=== PATIENT | male | born 1965 | race African-American/Black ===

== ENCOUNTER 2025-03-31 05:22 | Emergency (ER) | payer BC ==
[~2025-03-31] VITALS: Ht 170.2 cm; Wt 118.0 kg
[2025-03-31 05:26] VITALS: TEMP 37
[2025-03-31] MEDS ORDERED: METHYLPREDNISOLONE SOD SUCC 125MG/2ML (ACT-O-VIAL) IV STA (05:31)
[2025-03-31 05:40] VITALS: PULSE 112; RESP 24; O2SAT 95
[2025-03-31] MEDS: IPRATROPIUM BROMIDE (0.02%) 0.5MG/2.5ML NEB HHN STA (05:40)
[2025-03-31] MEDS: ALBUTEROL (0.083%) 2.5MG/3ML NEB HHN SCH (05:41)
[2025-03-31] MEDS ORDERED: P50 MT (06:45)
[2025-03-31] MEDS ORDERED: ALBU4TAB6 MT (06:45)
[2025-03-31] MEDS: PREDNISONE 20MG TABLET PO ONE (06:59)
[2025-03-31 07:02] VITALS: BP 145/75; PULSE 110; RESP 18; O2SAT 97
== END 2025-03-31 07:06 | disposition home or self-care (01) ==
LOC: ER 05:22
DX: J44.1 Chronic obstructive pulmonary disease with (acute) exacerbation (principal); I10 Essential (primary) hypertension; E78.5 Hyperlipidemia, unspecified; Z79.899 Other long term (current) drug therapy
CPT/HCPCS: 71045; 93005; 94644; 99285; J7512; Z7610 ×3; 94070; 94640; J2919